=== PATIENT | female | born 1960 | race Two or more races ===

== ENCOUNTER 2021-12-16 07:15 | Outpatient (CLI) | payer OTHER | END 2021-12-16 07:26 | disposition home or self-care (01) | LOC: TOM 07:15 | PROVIDERS: ATTEND Internal Medicine Gastroenterology | DX: K56.609 Unspecified intestinal obstruction, unspecified as to partial versus complete obstruction (principal); D64.9 Anemia, unspecified ==

== ENCOUNTER 2022-03-02 07:20 | Outpatient (CLI) | payer OTHER | END 2022-03-02 07:21 | disposition home or self-care (01) | LOC: TOM 07:20 | PROVIDERS: ATTEND Internal Medicine Gastroenterology | DX: K57.90 Diverticulosis of intestine, part unspecified, without perforation or abscess without bleeding (principal) ==

== ENCOUNTER 2022-03-09 08:56 | Outpatient (CLI) | payer OTHER | END 2022-03-09 08:58 | disposition home or self-care (01) | LOC: RX STUDY 08:56 | PROVIDERS: ATTEND Internal Medicine Gastroenterology | DX: D64.9 Anemia, unspecified (principal) ==

== ENCOUNTER 2023-08-22 11:33 | Outpatient (CLI) | payer OTHER | END 2023-08-22 11:37 | disposition home or self-care (01) | LOC: TOM 11:33 | PROVIDERS: ATTEND Psychiatry & Neurology Clinical Neurophysiology | DX: I63.30 Cerebral infarction due to thrombosis of unspecified cerebral artery (principal) ==